=== PATIENT | female | born 1940 | race Caucasian/White ===

== ENCOUNTER 2017-07-19 08:34 | Day surgery (SDC) | payer MEDICARE, BC ==
[2017-07-19] MEDS ORDERED: Sodium Chloride 0.9% 10 ML Syringe FLUSH PRN (08:45)
[2017-07-19] MEDS ORDERED: Lactated Ringers 1,000 ML IV SCH (09:15)
[2017-07-19] MEDS ORDERED: Propofol 200 MG/20 ML SDV IV ONE (10:00)
[2017-07-19] MEDS ORDERED: Lidocaine 2% 100 MG/5 ML Syringe IVPUSH ONE (10:00)
--- NOTE | 2017-07-19 10:35 | PCM.OPNOTE ---
- General Post-Op/Procedure Note Date of Surgery/Procedure: 07/19/17 Operative Procedure(s): c scope with bx Findings: transverse colon polyp Pre Op Diagnosis: + cologuard Post-Op Diagnosis: transverse colon polyp Anesthesia Technique: MAC Primary Surgeon: Eriberto Albarran Anesthesia Provider: Kelley Trevizo Pathology: transverse colon polyp Complications: None Condition: Good Free Text/Narrative:: see dictation
--- NOTE | 2017-07-19 11:44 | OR ---
DATE OF OPERATION: 07/19/2017 SURGEON: Eriberto Albarran MD PROCEDURE PERFORMED: Colonoscopy with cold forceps biopsy. PREOPERATIVE DIAGNOSIS: Positive Cologuard test. POSTOPERATIVE DIAGNOSIS: Small transverse colon polyp. INDICATIONS FOR PROCEDURE: This is a 76-year-old white female who recently underwent a Cologuard test, had a positive finding. She was offered and accepted colonoscopy. DESCRIPTION OF OPERATION: After an excellent IV sedation was administered, digital rectal exam was performed. No marked abnormality was noted. Flexible colonoscope was inserted and advanced to the cecum without difficulty. The following findings were noted. Ascending colon, unremarkable. Transverse colon, questionable polyp, biopsied with cold biopsy forceps and sent for permanent. Descending colon, unremarkable. Sigmoid colon, unremarkable. Sigmoid and rectum, unremarkable. Colon was deflated. Scope was removed. The patient tolerated the procedure well, and was taken to recovery in good condition. /[id number] MARYAM/CHRISTOPHE
== END 2017-07-19 11:28 | disposition home or self-care (01) ==
LOC: FB.SDS 08:34
PROVIDERS: ATTEND Surgery
DX: K63.5 Polyp of colon (principal); E78.00 Pure hypercholesterolemia, unspecified; Z88.2 Allergy status to sulfonamides; Z91.012 Allergy to eggs; Z91.040 Latex allergy status; Z88.8 Allergy status to other drugs, medicaments and biological substances; Z79.899 Other long term (current) drug therapy; Z90.49 Acquired absence of other specified parts of digestive tract; Z87.891 Personal history of nicotine dependence
CPT/HCPCS: 00810; 45380; J2704; J7120; 88305

== ENCOUNTER 2022-03-22 09:11 | Day surgery (SDC) | payer MEDICARE ==
[2022-03-22] MEDS ORDERED: fentaNYL 100 MCG/2 ML SDV IV ONE (09:12)
[2022-03-22] MEDS ORDERED: Midazolam 1 MG/ML 2 ML SDV IV ONE (09:12)
[2022-03-22] MEDS ORDERED: Sodium Chloride 0.9% 10 ML Syringe FLUSH PRN (09:30)
[2022-03-22] MEDS ORDERED: Lactated Ringers 1,000 ML IV PRN (09:30)
[2022-03-22] MEDS: acetaZOLAMIDE 500 MG Cap.ER PO ONE (11:42)
== END 2022-03-22 12:00 | disposition home or self-care (01) ==
LOC: FB.SDS 09:11
PROVIDERS: ATTEND Ophthalmology
DX: H25.813 Combined forms of age-related cataract, bilateral (principal); H43.811 Vitreous degeneration, right eye; H02.831 Dermatochalasis of right upper eyelid; H02.834 Dermatochalasis of left upper eyelid; H52.13 Myopia, bilateral; H52.223 Regular astigmatism, bilateral; Z79.899 Other long term (current) drug therapy; M81.0 Age-related osteoporosis without current pathological fracture; Z98.890 Other specified postprocedural states; Z87.891 Personal history of nicotine dependence; Z91.012 Allergy to eggs; Z79.82 Long term (current) use of aspirin; Z91.040 Latex allergy status; Z88.2 Allergy status to sulfonamides; E78.00 Pure hypercholesterolemia, unspecified; F41.9 Anxiety disorder, unspecified; Z90.49 Acquired absence of other specified parts of digestive tract
CPT/HCPCS: 00142-QZ; A9270-GY; J2250; J3010; V2632

== ENCOUNTER 2022-04-19 08:18 | Day surgery (SDC) | payer MEDICARE ==
[~2022-04-19 08:18] MED LIST: Lactated Ringers 1,000 ML IV PRN
[2022-04-19] MEDS ORDERED: fentaNYL 100 MCG/2 ML SDV IV ONE (08:19)
[2022-04-19] MEDS ORDERED: Midazolam 1 MG/ML 2 ML SDV IV ONE (08:19)
[2022-04-19] MEDS ORDERED: Sodium Chloride 0.9% 10 ML Syringe FLUSH PRN (08:30)
[2022-04-19] MEDS ORDERED: Lactated Ringers 1,000 ML IV SCH (08:30)
[2022-04-19] MEDS ORDERED: acetaZOLAMIDE 500 MG Cap.ER PO ONE (10:30)
== END 2022-04-19 11:00 | disposition home or self-care (01) ==
LOC: FB.SDS 08:18
PROVIDERS: ATTEND Ophthalmology
DX: H26.9 Unspecified cataract (principal); E78.00 Pure hypercholesterolemia, unspecified; G43.909 Migraine, unspecified, not intractable, without status migrainosus; F41.9 Anxiety disorder, unspecified; M19.90 Unspecified osteoarthritis, unspecified site; Z88.2 Allergy status to sulfonamides; Z91.012 Allergy to eggs; Z91.018 Allergy to other foods; Z91.040 Latex allergy status; Z79.810 Long term (current) use of selective estrogen receptor modulators (SERMs); Z79.899 Other long term (current) drug therapy; Z79.52 Long term (current) use of systemic steroids
CPT/HCPCS: 00142; 66984; A9270; J2250; J3010